=== PATIENT | female | born 1960 | race Two or more races ===

== ENCOUNTER 2016-09-25 10:13 | Emergency (ER) | payer SELFPAY ==
--- NOTE | 2016-09-25 10:46 | UCPHY ---
H & P Time Seen by Provider: 09/25/16 10:39 Patient Type: New HPI/ROS: CHIEF COMPLAINT: Chest congestion. HISTORY OF PRESENT ILLNESS: The patient is a 56-year-old female who presents with chest congestion/ tightness for 2 weeks. She admits associated fever, noted on arrival to urgent care. She has had some coughing. Headache this morning. She reports that she has had upper back pain and chest pain for the last 2 weeks. This developed while she was sitting in a cold in [employer]ikh[employer], playing the piano. Minimal upper respiratory infection symptoms. She does have a cough without any sputum production. She complains inability to take a deep breath secondary to chest tightness. Her back discomfort is between her shoulder blades. She has been taking Bronkaid and NyQuil for the symptoms. She denies shortness of breath, palpitations, vomiting, diarrhea, urinary complaints, lightheadedness. REVIEW OF SYSTEMS: Aside from elements discussed in the HPI, a comprehensive 10-point review of systems was reviewed and is negative. PAST MEDICAL HISTORY: Hypothyroidism. SOCIAL HISTORY: Nonsmoker. VITAL SIGNS: Reviewed by me GENERAL: Well-developed, well-nourished, resting comfortably in no respiratory distress. HEENT: Atraumatic. Eyes: No icterus, no injection. Mouth: Mild tonsillar enlargement. Moist mucous membranes. No erythema or lesions. Neck: supple with no adenopathy. LUNGS: Harsh cough. Clear to auscultation bilaterally, no wheezes, rhonchi or rales. CARDIAC: Regular rate and rhythm, no rubs, murmurs or gallops. ABDOMEN: Soft, nontender, nondistended, bowel sounds normal. BACK: No CVA tenderness. EXTREMITIES: No trauma. No edema. Range of motion is normal throughout. NEURO: Alert and oriented, grossly nonfocal. SKIN: Warm and dry, no rash. PSYCHIATRIC: Normal mentation, no agitation. Portions of this note were transcribed by a medical dosimetrist. I personally performed a history, physical exam, medical decision making, and confirmed accuracy of information the transcribed note. Constitutional: Initial Vital Signs Temperature (C) 37.4 C 09/25/16 10:30 Heart Rate 87 09/25/16 10:30 Respiratory Rate 18 09/25/16 10:30 Blood Pressure 134/78 H 09/25/16 10:30 O2 Sat (%) 96 09/25/16 10:30 O2 Delivery Mode Room Air Allergies/Adverse Reactions: No Known Allergies Allergy (Verified 09/25/16 10:44) Home Medications: Medication Instructions Recorded Levothyroxine [Synthroid 100 mcg 100 mcg PO DAILY06 12/25/12 (RX)] Loratadine [Claritin] 10 mg PO DAILY #30 tablet 12/25/12 AZITHROMYCIN [Z-PACK] 250 - 500 mg PO DAILY #6 tab 09/25/16 Albuterol [Proventil Inhaler HFA 1 - 2 puffs IH Q4H #1 mdi 09/25/16 (*)] GLIPIZIDE 09/25/16 Lovastatin 09/25/16 predniSONE [prednisone 10mg (RX)] 40 mg PO DAILY 3 Days 09/25/16 Medical Decision Making - Diagnostics EKG Interpretation: 12-LEAD EKG: Please see the full report in [facility]. My interpretation: T -wave flattening inferiorly, nonspecific T-wave inversions V2- V3 Imaging: X-ray of the chest was obtained. I viewed the images myself on the PACS system. My interpretation of the images is: no focal infiltrates. The radiologist interpretation is pending at this time. I discussed the x-ray findings with the patient. ED Course/Re-evaluation: Chest x-ray, EKG ordered. 3ml IH Albuterol administered. Patient reexamined after her albuterol nebulizer treatment. She reports no change in the sensation chest tightness and inability to take a deep breath. Her infectious symptoms have included chills in the morning, occasional cough, a temperature on arrival to the emergency department of 37.4. An IV was established and labs ordered. 1L IV Saline administered for hydration. Patient's troponin was negative. D-dimer was negative. Chest x-ray was interpreted by radiology as showing no acute findings. Patient was discharged with instructions to use albuterol meter dose inhaler as directed, a short course of prednisone, and azithromycin for her persistent chest discomfort and cough. Differential Diagnosis: Differential diagnosis for the patient's symptom complex was considered including but not limited to viral versus bacterial bronchitis, asthma, pulmonary emboli, upper respiratory infection, lower respiratory infection, bronchospasm, acute coronary syndrome, pulmonary embolus, chest wall pain, pleural inflammation and pulmonary infectious causes. - Data Points Laboratory Results: Laboratory Results 09/25/16 12:00 09/25/16 12:00 09/25/16 12:00 WBC 5.51 10^3/uL (3.80-9.50) RBC 4.69 10^6/uL (4.18-5.33) Hgb 14.1 g/dL (12.6-16.3) Hct 40.7 % (38.0-47.0) MCV 86.8 fL (81.5-99.8) MCH 30.1 pg (27.9-34.1) MCHC 34.6 g/dL (32.4-36.7) RDW 13.2 % (11.5-15.2) Plt Count 189 10^3/uL (150-400) MPV 9.4 fL (8.7-11.7) Neut % (Auto) 53.4 % (39.3-74.2) Lymph % (Auto) 33.6 % (15.0-45.0) [place] % (Auto) 10.2 % (4.5-13.0) Eos % (Auto) 2.2 % (0.6-7.6) Baso % (Auto) 0.4 % (0.3-1.7) Nucleat RBC Rel Count 0.0 % (0.0-0.2) Absolute Neuts (auto) 2.95 10^3/uL (1.70-6.50) Absolute Lymphs (auto) 1.85 10^3/uL (1.00-3.00) Absolute Monos (auto) 0.56 10^3/uL (0.30-0.80) Absolute Eos (auto) 0.12 10^3/uL (0.03-0.40) Absolute Basos (auto) 0.02 10^3/uL (0.02-0.10) Absolute Nucleated RBC 0.00 10^3/uL (0-0.01) Immature Gran % 0.2 % (0.0-1.1) Immature Gran # 0.01 10^3/uL (0.00-0.10) D-Dimer < 0.27 ug/mLFEU (0.00-0.50) Sodium 142 mEq/L (134-144) Potassium 3.8 mEq/L (3.5-5.2) Chloride 105 mEq/L (97-110) Carbon Dioxide 25 mEq/l (22-31) Anion Gap 12 mEq/L (8-16) BUN 10 mg/dL (7-23) Creatinine 0.8 mg/dL (0.6-1.0) Estimated GFR > 60 Glucose 135 H mg/dL (70-100) Calcium 9.2 mg/dL (8.5-10.4) Troponin I < 0.012 ng/mL (0-0.034) Medications Given: Discontinued Medications Albuterol (Proventil Neb) 3 ml IH EDNOW ONE Stop: 09/25/16 10:58 Last Admin: 09/25/16 11:23 Dose: 3 ml Sodium Chloride (Ns) 1,000 mls @ 0 mls/hr IV ONCE ONE PRN Reason: Wide Open Stop: 09/25/16 11:44 Last Admin: 09/25/16 12:12 Dose: 1,000 mls Departure - Departure Disposition: Home, Routine, Self-Care Clinical Impression: Bronchitis, Sensation of chest tightness Condition: Good Instructions: Acute Bronchitis (ED) Additional Instructions: Use the inhaler as instructed and take Prednisone as prescribed. Take Azithromycin as prescribed. Follow up with your primary care provider if symptoms are not improving in the next 2-3 days. Return to Urgent Care or the emergency department if you experience worsening chest pain, shortness of breath, or other serious worsening of condition. Referrals: Lucrecia Aguilera DO [Primary Care Provider] - As per Instructions Prescriptions: Albuterol [Proventil Inhaler HFA (*)] 1 - 2 puffs IH Q4H #1 mdi AZITHROMYCIN [Z-PACK] 250 - 500 mg PO DAILY #6 tab predniSONE [prednisone 10mg (RX)] 40 mg PO DAILY 3 Days - PQRS PQRS Measurement: Not applicable Report Scribed for: Meg Fernandez Report Scribed by: Eleazar Buckner Date of Report: 09/25/16 Time of Report: 10:45
[2016-09-25 10:51] VITALS: RESP 18
[2016-09-25] MEDS ORDERED: ALBUTEROL 3 ML DEYVIAL IH ONE (10:57)
--- NOTE | 2016-09-25 11:37 | CPEKG ---
Heart Rate: 82 RR Interval: 732 P-R Interval: 156 QRSD Interval: 98 QT Interval: 396 QTC Interval: 463 P [place]: 39 QRS [place]: 72 T Wave [place]: -17 EKG Severity - BORDERLINE ECG - EKG Impression: SINUS RHYTHM EKG Impression: ST abnormalities anterior-laterally, consider anterior-lateral ischemia. Electronically Signed By: Nikhil Rowell 26-Sep-2016 17:02:51
[2016-09-25] MEDS ORDERED: NS 1,000 ML IV ONE (11:43)
[2016-09-25 12:14] LABS: % IMMATURE GRANULYOCYTES 0.2 % (0.0-1.1); ABSOLUTE IMMATURE GRANULOCYTES 0.01 10^3/uL (0.00-0.10); ADD DIFF? NO; ADD MORPH? NO; ADD SCAN? NO; ATYPICAL LYMPHOCYTE FLAG 10 (0-99); FRAGMENT RBC FLAG 0 (0-99); HEMATOCRIT 40.7 % (38.0-47.0); HEMOGLOBIN 14.1 g/dL (12.6-16.3); LEFT SHIFT FLG 0 (0-99); LIPEMIA HEMOLYSIS FLAG 90 (0-99); MEAN CELL HEMOGLOBIN 30.1 pg (27.9-34.1); MEAN CELL HEMOGLOBIN CONCENTR. 34.6 g/dL (32.4-36.7); MEAN CELL VOLUME 86.8 fL (81.5-99.8); MEAN PLATELET VOLUME 9.4 fL (8.7-11.7); PLATELET CLUMPS FLAG 0 (0-99); PLATELET COUNT 189 10^3/uL (150-400); RED BLOOD CELL COUNT 4.69 10^6/uL (4.18-5.33); RED CELL DISTRIBUTION WIDTH 13.2 % (11.5-15.2)
[2016-09-25 12:32] LABS: ANION GAP 12 mEq/L (8-16); CALCIUM 9.2 mg/dL (8.5-10.4); CARBON DIOXIDE 25 mEq/l (22-31); CHLORIDE 105 mEq/L (97-110); CREATININE 0.8 mg/dL (0.6-1.0); GLOMERULAR FILTRATION RATE > 60; GLUCOSE 135 mg/dL (70-100); POTASSIUM 3.8 mEq/L (3.5-5.2); SODIUM 142 mEq/L (134-144)
[2016-09-25 12:44] LABS: TROPONIN I < 0.012 ng/mL (0-0.034)
--- NOTE | 2016-09-25 12:44 | DX ---
PA and Lateral Chest, 2 Views Total, at 11:03 a.m. Clinical Indications: 56-year-old female with chest congestion and pain. Comparison Study: Chest, dated February 16, 2011. Findings: The lungs are clear, and no masses are found. The heart and pulmonary vessels are normal. There are no pleural effusions, and no pneumothorax. The bones are unremarkable for this age. Ther e is some metallic clips/clasps projected over the right upper quadrant the abdomen. Impression: There is no acute intrathoracic abnormality identified.
[2016-09-25 13:04] VITALS: BP 117/66; PULSE 85; TEMP 98.4; O2SAT 94
== END 2016-09-25 13:02 | disposition home or self-care (01) ==
LOC: CED 10:13
DX: J40 Bronchitis, not specified as acute or chronic (principal); R07.89 Other chest pain; E03.9 Hypothyroidism, unspecified
CPT/HCPCS: 71020-PO; 80048-PO; 84484-PO; 85025-PO; 85378-PO; 93010-PO; 96360-PO; 99203-PO; G0463-PO